=== PATIENT | male | born 1980 | race Caucasian/White ===

== ENCOUNTER 2021-04-23 17:12 | Outpatient (REF) | payer BC, SELFPAY ==
[2021-04-25 12:30] LABS: COVID-19 RT-PCR UVMMC Result Negative (Negative)
== END 2021-04-23 17:13 | disposition home or self-care (01) ==
LOC: LBN 17:12
PROVIDERS: Visit Provider Physician Assistant Medical
DX: Z20.822 Contact with and (suspected) exposure to COVID-19 (principal); J02.9 Acute pharyngitis, unspecified
CPT/HCPCS: U0003; 87070

== ENCOUNTER 2021-06-14 00:59 | Outpatient (CLI) | payer BC, SELFPAY ==
--- NOTE | 2021-06-14 08:00 | ETT_ITS ---
APPROVED REPORT Exam: Exercise Treadmill Patient Location: Out-Patient Room/Bed: Stress Nurse: Anne-Marie Ritter RN Ordering Provider:PAT LANE, Contact Number: [phone] BMI: 38.26 Baseline Rhythm: Sinus Rhythm Indications: Chest pain Medical History Medical History: Hyperlipidemia, prehypertension, obesity, [place], aortic valve regurgiation (per pt), a nxiety Cardiac Medications: None Allergies: Iodine, diphenhydramine, sertraline, azithromycin, sulfa, shellfish Cardiac Risk Factors: Hyperlipidemia, prehypertension, smoker (former), obesity, family hx Previous Cardiac Procedures: None Pretest Chest Pain Characteristics: None Exercise History: Sedentary Physical Disabilities: None Lung Sounds: Clear to auscultation Heart Sounds: Regular Stress Test Details Test: Exercise stress testing was performed using a Lefty protocol. Rest Stress HR Resting HR Supine: 82 bpm Max Heart Rate (APMHR): 181 bpm Resting HR Standin bpm Target HR (85% APMHR): 153 bpm Max HR Achieved: 156 bpm % of APMHR: 86 Recovery HR: 94 bpm HR response to stress: Normal HR response to stress BP Resting BP Supine: 140/100 mmHg Resting BP Standin/98 mmHg Max BP: 166/104 mmHg Recovery BP: 138/92 mmHg BP response to stress: Normal blood pressure response to stress. ECG Resting ECG: Sinus Rhythm Ectopy: None Stress ECG: Sinus Tachycardia ST Change: No significant ST segment changes noted Arrhythmia: Occasional PACs Recovery ECG: Sinus Rhythm Recovery ST Change: No significant ST segment changes noted Recovery Arrhythmia: None Clinical Reason for Termination: Fatigue Stress Symptoms: General Fatigue, Dyspnea Exercise duration: 7 min44 sec Highest Stage Reached: Stage 3: 3.4 mph at 14% grade. Exercise capacity: 9.75 METs Abrams Treadmill Score: 7.0 Rate Pressure Product: [id number] Stress ECG Conclusion 1. The resting electrocardiogram was within normal limits 2. Resting hypertension. Normal hemodynamic response to exercise. The patient achieved 86% of predi cted heart rate for age 3. Patient exercised on the Lefty protocol and completed a workload of 9.75 METS, stopping due to fat igue 4. The electrocardiographic portion of the test was negative for myocardial ischemia 5. There were no significant dysrhythmias Abrams Treadmill Score is 7.0 which is Low risk. Stress Test Summary STAGE Time (mins) Speed (mph) Grade (%) HR BP SYMPTOMS METS Supine 82 140/100 Standing 94 142/98 SpO2 97% 1 3 1.7 10 118 148/102 SpO2 94% 4.6 2 6 2.5 12 143 162/106 Mild SOB, SpO2 94% 7 3 9 3.4 14 156 Moderate SOB, SpO2 94% 10.2 1 min recovery 132 166/104 Mild SOB, SpO2 96% 3 min recovery 106 160/98 SOB resolved, SpO2 96% 6 min recovery 94 138/92 SpO2 96%
== END 2021-06-14 01:19 ==
LOC: DI 00:59
PROVIDERS: PCP Family Medicine; Visit Provider Family Medicine
DX: R07.89 Other chest pain (principal)
CPT/HCPCS: 93017

== ENCOUNTER 2022-09-28 16:46 | Outpatient (REF) | payer OTHER, SELFPAY ==
[2022-09-28 21:21] LABS: Abs Immature Grans 0.04 10^3/uL (0.0-0.06); Absolute Basophil Count 0.06 10^3/uL (0.0-0.2); Absolute Eosinophil Count 0.15 10^3/uL (0.0-0.7); Absolute Lymphocyte Count 1.91 10^3/uL (1.2-3.4); Absolute Monocyte Count 0.78 10^3/uL (0.1-0.8); Absolute Neutrophil Count 3.81 10^3/uL (1.2-6.7); Basophils % 0.9; Eosinophils % 2.2; HCT 54.7 % (40.0-50.0); HGB 18.9 g/dL (13.5-17.5); Immature Grans % 0.6; Lymphocytes % 28.3; MCH 30.5 pg (27.0-33.0); MCHC 34.6 % (32.0-36.0); MCV 88 fL (80-95); MPV 11.3 fL (8.0-11.0); Monocytes % 11.6; Neutrophils % 56.4; Platelet Count 197 10^3/uL (130-400); RDW 12.8 % (11.8-14.1); RDW-SD 41.1 fL; WBC 6.75 10^3/uL (4.4-10.8)
[2022-09-28 21:39] LABS: Anion Gap 6.5 mmol/L (3-11); BUN 17 mg/dL (7-18); CO2 29.5 mmol/L (21.0-32.0); CREATININE 1.3 mg/dL (0.70-1.30); Calcium 9.5 mg/dL (8.5-10.1); Chloride 103 mmol/L (98-107); Estimated GFR 71.22 (mL/min/1.73m2); Glucose 90 mg/dL (74-106); Potassium 4.4 mmol/L (3.5-5.1); Sodium 139 mmol/L (136-145); TSH (W/Ref FT4) 1.89 uIU/mL (0.36-3.74)
[2022-09-28 23:05] LABS: Diff Comment RBC Morph Reviewed
[2022-09-28 23:06] LABS: RBC Morphology Normal
== END 2022-09-28 16:47 | disposition home or self-care (01) ==
LOC: NCHCN 16:46
PROVIDERS: PCP Family Medicine; Visit Provider Family Medicine
DX: M79.18 Myalgia, other site (principal); R00.2 Palpitations; M72.2 Plantar fascial fibromatosis
CPT/HCPCS: 80048; 84443; 85025

== ENCOUNTER 2022-12-13 16:08 | Outpatient (REF) | payer OTHER, SELFPAY ==
[2022-12-13 15:51] LABS: Abs Immature Grans 0.05 10^3/uL (0.0-0.06); Absolute Basophil Count 0.04 10^3/uL (0.0-0.2); Absolute Lymphocyte Count 1.45 10^3/uL (1.2-3.4); Absolute Monocyte Count 0.65 10^3/uL (0.1-0.8); Absolute Neutrophil Count 3.57 10^3/uL (1.2-6.7); Basophils % 0.7; Eosinophils % 1.7; Immature Grans % 0.9; Lymphocytes % 24.7; MCH 30.3 pg (27.0-33.0); MCV 89 fL (80-95); MPV 10.8 fL (8.0-11.0); Monocytes % 11.1; Neutrophils % 60.9; Platelet Count 201 10^3/uL (130-400); RDW 12.6 % (11.8-14.1); RDW-SD 41.5 fL; WBC 5.86 10^3/uL (4.4-10.8)
[2022-12-13 16:07] LABS: ALT 33 U/L (16-63); AST 19 U/L (15-37); Albumin 4.1 g/dL (3.4-5.0); Alkaline Phosphatase 69 U/L (46-116); Anion Gap 6.5 mmol/L (3-11); BUN 16 mg/dL (7-18); Bilirubin, Total 0.6 mg/dL (0.2-1.0); CO2 28.5 mmol/L (21.0-32.0); Calcium 9.4 mg/dL (8.5-10.1); Calculated LDL 117 mg/dL (<100); Chloride 104 mmol/L (98-107); Cholesterol 183 mg/dL (<200); Estimated GFR 96.97 (mL/min/1.73m2); Glucose 101 mg/dL (74-106); HDL Cholesterol 39 mg/dL (40-60); Potassium 4.6 mmol/L (3.5-5.1); Sodium 139 mmol/L (136-145); TSH (W/Ref FT4) 1.81 uIU/mL (0.36-3.74); Total Protein 7.2 g/dL (6.4-8.2); Triglyceride 137 mg/dL (<150)
[2022-12-13 16:24] LABS: Vitamin D 25 Total 21.7 ng/mL (30-100)
[2022-12-13 17:39] LABS: Diff Comment Diff Reviewed; HGB 19.4 g/dL (13.5-17.5)
[2022-12-13 17:40] LABS: RBC Morphology Normal
== END 2022-12-13 16:09 | disposition home or self-care (01) ==
LOC: NCHCN 16:08
PROVIDERS: PCP Family Medicine; Visit Provider Family Medicine
DX: Z00.00 Encounter for general adult medical examination without abnormal findings (principal); E55.9 Vitamin D deficiency, unspecified; F41.1 Generalized anxiety disorder; E78.5 Hyperlipidemia, unspecified; D75.1 Secondary polycythemia; M72.2 Plantar fascial fibromatosis; G47.33 Obstructive sleep apnea (adult) (pediatric)
CPT/HCPCS: 80053; 80061; 82306; 84443; 85025

== ENCOUNTER 2022-12-14 16:18 | Outpatient (REF) | payer OTHER, SELFPAY ==
[2022-12-16 19:47] LABS: Erythropoietin 10.4 mIU/mL (2.6 - 18.5)
[2022-12-20 11:09] LABS: JAK2 Result see interpretation
== END 2022-12-14 16:19 | disposition home or self-care (01) ==
LOC: NCHCN 16:18
PROVIDERS: PCP Family Medicine; Visit Provider Family Medicine
DX: D75.1 Secondary polycythemia (principal)
CPT/HCPCS: 82668; 81270

== ENCOUNTER 2023-07-24 11:20 | Outpatient (REF) | payer OTHER, SELFPAY ==
[2023-07-24 15:05] LABS: Abs Immature Grans 0.03 10^3/uL (0.0-0.06); Absolute Basophil Count 0.05 10^3/uL (0.0-0.2); Absolute Eosinophil Count 0.09 10^3/uL (0.0-0.7); Absolute Lymphocyte Count 1.34 10^3/uL (1.2-3.4); Absolute Monocyte Count 0.58 10^3/uL (0.1-0.8); Absolute Neutrophil Count 2.67 10^3/uL (1.2-6.7); Basophils % 1.1 %; Eosinophils % 1.9 %; HCT 53.4 % (40.0-50.0); HGB 18.5 g/dL (13.5-17.5); Immature Grans % 0.6 %; Lymphocytes % 28.2 %; MCH 30.4 pg (27.0-33.0); MCHC 34.6 % (32.0-36.0); MCV 88 fL (80-95); MPV 11.1 fL (8.0-11.0); Monocytes % 12.2 %; Platelet Count 198 10^3/uL (130-400); RBC 6.09 10^6/uL (4.36-5.78); RDW 12.8 % (11.8-14.1); WBC 4.76 10^3/uL (4.4-10.8)
[2023-07-24 15:12] LABS: ESR 5 mm/hr (0-15)
[2023-07-24 15:51] LABS: ALT 41 U/L (16-63); AST 19 U/L (15-37); Albumin 4.4 g/dL (3.4-5.0); Alkaline Phosphatase 67 U/L (46-116); Anion Gap 10.9 mmol/L (3-11); BUN 22 mg/dL (7-18); Bilirubin, Total 0.7 mg/dL (0.2-1.0); CO2 26.1 mmol/L (21.0-32.0); CREATININE 1.2 mg/dL (0.70-1.30); Calcium 9.3 mg/dL (8.5-10.1); Chloride 105 mmol/L (98-107); Estimated GFR 77.92 (mL/min/1.73m2); Folate 15.9 ng/mL (8.6-20.0); Glucose 97 mg/dL (74-106); Potassium 4.3 mmol/L (3.5-5.1); Sodium 142 mmol/L (136-145); TSH (W/Ref FT4) 1.16 uIU/mL (0.36-3.74); Total Protein 7.1 g/dL (6.4-8.2); Vitamin B12 371 pg/mL (193-986)
[2023-07-25 09:44] LABS: Lyme Ab w Rflx to Lyme Confirm Negative (Negative)
[2023-07-27 08:46] LABS: Anaplasma phagocytophilum Negative (Negative); B. miyamotoi PCR Negative (Negative); Babesia divergens/MO-1 Negative (Negative); Babesia duncani Negative (Negative); Babesia microti Negative (Negative); Ehrlichia chaffeensis Negative (Negative); Ehrlichia ewingii/canis Negative (Negative); Ehrlichia muris eauclairensis Negative (Negative)
== END 2023-07-24 11:21 | disposition home or self-care (01) ==
LOC: NCHCN 11:20
PROVIDERS: PCP Family Medicine; Visit Provider Family Medicine
DX: M62.81 Muscle weakness (generalized) (principal); R41.89 Other symptoms and signs involving cognitive functions and awareness
CPT/HCPCS: 80053; 85652; 87798; 82607; 82746; 84443; 85025; 86618

== ENCOUNTER 2023-07-27 14:22 | Outpatient (REF) | payer OTHER, SELFPAY ==
[2023-07-27 15:06] LABS: Ferritin 134 ng/mL (26-388)
[2023-07-28 11:45] LABS: Syphilis Serology (RPR) Negative (Negative)
[2023-07-31 16:41] LABS: Erythropoietin 9.1 mIU/mL (2.6 - 18.5)
[2023-07-31 17:10] LABS: JAK2 Result see interpretation
== END 2023-07-27 14:23 | disposition home or self-care (01) ==
LOC: NCHCN 14:22
PROVIDERS: PCP Family Medicine; Visit Provider Family Medicine
DX: R41.89 Other symptoms and signs involving cognitive functions and awareness (principal); D45 Polycythemia vera
CPT/HCPCS: 82668; 81270; 82728; 86592

== ENCOUNTER 2023-08-17 03:50 | Outpatient (RCR) | payer OTHER, SELFPAY ==
[2023-08-03] MEDS: Normal Saline Flush 10 ML SYR IVP (08:05)
[2023-08-03 08:22] LABS: HCT 54.1 % (40.0-50.0); HGB 18.7 g/dL (13.5-17.5)
[2023-08-10 08:35] LABS: HCT 49.7 % (40.0-50.0); HGB 17.3 g/dL (13.5-17.5)
[2023-08-17 08:53] LABS: HCT 48.4 % (40.0-50.0)
== END 2023-08-18 23:59 | disposition home or self-care (01) ==
LOC: INF 03:50
PROVIDERS: PCP Family Medicine; Visit Provider Family Medicine
DX: D45 Polycythemia vera (principal)
CPT/HCPCS: 36415; 99195; 85014; 85018

== ENCOUNTER → 2023-08-25 01:44 | Outpatient (CLI) | payer OTHER, SELFPAY ==
--- NOTE | 2023-08-25 09:21 | DI.RAD_ITS ---
Exam(s) XR EYE FOREIGN BODY EXAM: XR EYE FOREIGN BODY INDICATION: SIGNS COGNITIVE FUNCTIONS AND AWARENESS R41.89 MRI CLEARANCE, HX METAL IN. COMPARISON: No exams were available for comparison TECHNIQUE: 2D digital imaging was performed. FINDINGS: No radiopaque foreign bodies are seen in the orbits. IMPRESSION: No radiopaque foreign body is are seen in the orbits. DATA REPOSITORY: RADIATION DOSE DELIVERED:
== END ==
PROVIDERS: PCP Family Medicine; Visit Provider Family Medicine
DX: R41.89 Other symptoms and signs involving cognitive functions and awareness (principal)
CPT/HCPCS: 70030

== ENCOUNTER 2023-09-14 01:11 | Outpatient (RCR) | payer OTHER, SELFPAY ==
[2023-09-04 07:57] LABS: HGB 16.6 g/dL (13.5-17.5)
[2023-09-14 08:52] LABS: HGB 15.5 g/dL (13.5-17.5)
== END 2023-09-17 23:59 | disposition home or self-care (01) ==
LOC: INF 01:11
PROVIDERS: PCP Family Medicine; Visit Provider Family Medicine
DX: D45 Polycythemia vera (principal)
CPT/HCPCS: 36415; 99195; 85014; 85018

== ENCOUNTER 2023-10-05 09:11 | Outpatient (CLI) | payer OTHER, SELFPAY ==
[2023-10-05 09:00] LABS: Abs Immature Grans 0.02 10^3/uL (0.0-0.06); Absolute Basophil Count 0.05 10^3/uL (0.0-0.2); Absolute Lymphocyte Count 1.36 10^3/uL (1.2-3.4); Absolute Monocyte Count 0.56 10^3/uL (0.1-0.8); Absolute Neutrophil Count 2.69 10^3/uL (1.2-6.7); Eosinophils % 2.1 %; HCT 47.2 % (40.0-50.0); HGB 15.8 g/dL (13.5-17.5); Immature Grans % 0.4 %; Lymphocytes % 28.5 %; MCH 28.7 pg (27.0-33.0); MCHC 33.5 % (32.0-36.0); MCV 86 fL (80-95); Monocytes % 11.7 %; Neutrophils % 56.3 %; Platelet Count 213 10^3/uL (130-400); RDW 12.5 % (11.8-14.1); WBC 4.78 10^3/uL (4.4-10.8)
[2023-10-05 09:28] LABS: Ferritin 16 ng/mL (26-388)
== END 2023-10-05 09:12 | disposition home or self-care (01) ==
LOC: LBO 09:11
PROVIDERS: PCP Family Medicine; Visit Provider Internal Medicine
DX: D75.1 Secondary polycythemia (principal)
CPT/HCPCS: 36415; 82728; 85025

== ENCOUNTER 2023-10-05 14:00 | Outpatient (RCR) | payer OTHER, SELFPAY ==
[2023-09-20 08:05] LABS: HCT 49.2 % (40.0-50.0); HGB 16.4 g/dL (13.5-17.5)
== END 2023-10-18 23:59 | disposition home or self-care (01) ==
LOC: INF 14:00
PROVIDERS: PCP Family Medicine; Visit Provider Family Medicine
DX: D45 Polycythemia vera (principal)
CPT/HCPCS: 36415; 99195; 85014; 85018

== ENCOUNTER → 2023-10-18 00:37 | Outpatient (CLI) | payer OTHER, SELFPAY ==
--- OUTSIDE RECORDS SUMMARY | 2023-09-15 00:21 | XMS_ITS | Continuity of Care Document ---
Author Name Unknown Organization [facility] Address [address] [place] [address] Care Team Providers Care Jacquard Loom Card Changer Name Role Phone Juliano Persaud Primary Care Physician Encounter [facility] [id number] Date(s): 12/09/22 - 12/09/22 [facility] [address] [place] [address] Discharge Disposition: Home Allergies, Adverse Reactions, Alerts Substance Reaction Severity Status azithromycin Severe Active sertraline Severe Active shellfish Moderate Active sulfa drugs Moderate Active diphenhydrAMINE Severe Active iodine Severe Active Problem List Condition Confirmation Course Effective Dates Status Health St atus Informant Cognitive changes Confirmed Active Obstructive sleep apnea, adult Confirmed Active Periodic limb movements of sleep Confirmed Active Word finding difficulty Confirmed Active Social History Social History Type Response Tobacco Never tobacco user T obacco Use:. 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
--- OUTSIDE RECORDS SUMMARY | 2023-09-15 00:21 | XMS_ITS | Continuity of Care Document ---
Author Name Unknown Organization [facility] Address [address] [place] [address] Care Team Providers Care Mill Tender Second Operator Name Role Phone Juliano Persaud Primary Care Physician Encounter [facility] [id number] Date(s): 04/05/23 - 04/05/23 [facility] [address] [place] [address] Discharge Disposition: Home Allergies, Adverse Reactions, Alerts Substance Reaction Severity Status azithromycin Severe Active sertraline Severe Active shellfish Moderate Active sulfa drugs Moderate Active diphenhydrAMINE Severe Active iodine Severe Active Medications aspirin 81 mg oral capsule 81 mg = 1 cap, Oral, every 24 hr, 0 Refill(s) Start Date: 01/18/23 Status: Ordered Problem List Condition Confirmation Course Effective Dates [...] Member Role: Primary Care Physician Address: Address: [address] [address] Name: Rebekah Guan 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
--- NOTE | 2023-10-18 | DI.MRI_ITS ---
Exam(s) MR BRAIN WO EXAM: MR BRAIN WO CLINICAL HISTORY: IMPAIRED COGNITION R41.89 TECHNIQUE: Multiplanar multisequence MRI of the brain was performed. COMPARISON: No exams were available for comparison FINDINGS: VENTRICLES AND EXTRA AXIAL SPACES: Normal in size and morphology for the patient's age. MIDLINE SHIFT: None. CEREBRAL PARENCHYMA: No focus of restricted diffusion to suggest acute infarct. No space-occupying le wilfrid identified. Mild atrophy consistent with the patient's age. Mild scattered foci of high signal in the white matter consistent with sequela of chronic microvascular disease. HEMORRHAGE: None. BRAINSTEM/CEREBELLUM: Normal. VISUALIZED PARANASAL SINUSES/MASTOIDS:Mild mucosal thickening noted at the floor of the right maxilla ry sinus and ethmoid sinuses. Vasculature: Normal flow void. PITUITARY GLAND: Unremarkable. ORBITS: Unremarkable. IMPRESSION: Unremarkable MRI of the brain. DATA REPOSITORY:
== END ==
PROVIDERS: PCP Family Medicine; Visit Provider Family Medicine
DX: R41.89 Other symptoms and signs involving cognitive functions and awareness (principal); R16.1 Splenomegaly, not elsewhere classified
CPT/HCPCS: 70551

== ENCOUNTER 2023-11-06 03:11 | Outpatient (RCR) | payer OTHER, SELFPAY ==
[2023-11-06 09:17] LABS: Abs Immature Grans 0.03 10^3/uL (0.0-0.06); Absolute Basophil Count 0.05 10^3/uL (0.0-0.2); Absolute Eosinophil Count 0.17 10^3/uL (0.0-0.7); Absolute Lymphocyte Count 1.93 10^3/uL (1.2-3.4); Absolute Monocyte Count 0.87 10^3/uL (0.1-0.8); Absolute Neutrophil Count 3.12 10^3/uL (1.2-6.7); Basophils % 0.8 %; Eosinophils % 2.8 %; HCT 45.9 % (40.0-50.0); HGB 14.7 g/dL (13.5-17.5); Immature Grans % 0.5 %; Lymphocytes % 31.3 %; MCH 26.4 pg (27.0-33.0); MCV 82 fL (80-95); MPV 10.3 fL (8.0-11.0); Monocytes % 14.1 %; Neutrophils % 50.5 %; Platelet Count 230 10^3/uL (130-400); RBC 5.57 10^6/uL (4.36-5.78); RDW 13.2 % (11.8-14.1); RDW-SD 39.7 fL; WBC 6.17 10^3/uL (4.4-10.8)
[2023-11-06 09:43] LABS: Ferritin 11 ng/mL (26-388)
== END 2023-11-18 23:59 | disposition home or self-care (01) ==
LOC: INF 03:11
PROVIDERS: PCP Family Medicine; Visit Provider Family Medicine
DX: D45 Polycythemia vera (principal)
CPT/HCPCS: 36415; 99195; 82728; 85025

== ENCOUNTER 2023-11-06 08:00 | Outpatient (RCR) | payer OTHER, SELFPAY ==
[2023-10-20 08:45] LABS: Abs Immature Grans 0.04 10^3/uL (0.0-0.06); Absolute Basophil Count 0.05 10^3/uL (0.0-0.2); Absolute Eosinophil Count 0.18 10^3/uL (0.0-0.7); Absolute Lymphocyte Count 1.43 10^3/uL (1.2-3.4); Absolute Monocyte Count 0.59 10^3/uL (0.1-0.8); Absolute Neutrophil Count 2.49 10^3/uL (1.2-6.7); Eosinophils % 3.8 %; Immature Grans % 0.8 %; Lymphocytes % 29.9 %; MCH 27.5 pg (27.0-33.0); MCHC 32.6 % (32.0-36.0); MCV 84 fL (80-95); MPV 10.5 fL (8.0-11.0); Monocytes % 12.3 %; Neutrophils % 52.2 %; Platelet Count 237 10^3/uL (130-400); RBC 5.45 10^6/uL (4.36-5.78); RDW 12.6 % (11.8-14.1); RDW-SD 38.4 fL; WBC 4.78 10^3/uL (4.4-10.8)
[2023-10-20 09:13] LABS: Ferritin 25 ng/mL (26-388)
== END 2023-11-18 23:59 | disposition home or self-care (01) ==
LOC: INF 08:00
PROVIDERS: PCP Family Medicine; Visit Provider Internal Medicine
DX: D45 Polycythemia vera (principal)
CPT/HCPCS: 36415; 99195; 82728; 85025

== ENCOUNTER 2023-11-28 02:33 | Outpatient (CLI) | payer OTHER, SELFPAY ==
[2023-11-28 14:40] LABS: Abs Immature Grans 0.03 10^3/uL (0.0-0.06); Absolute Basophil Count 0.04 10^3/uL (0.0-0.2); Absolute Eosinophil Count 0.07 10^3/uL (0.0-0.7); Absolute Lymphocyte Count 1.51 10^3/uL (1.2-3.4); Absolute Monocyte Count 0.67 10^3/uL (0.1-0.8); Basophils % 0.5 %; Eosinophils % 0.9 %; HCT 42.8 % (40.0-50.0); HGB 13.3 g/dL (13.5-17.5); Immature Grans % 0.4 %; Lymphocytes % 18.8 %; MCH 24.3 pg (27.0-33.0); MCHC 31.1 % (32.0-36.0); MCV 78 fL (80-95); MPV 9.8 fL (8.0-11.0); Monocytes % 8.4 %; Platelet Count 244 10^3/uL (130-400); RBC 5.48 10^6/uL (4.36-5.78); WBC 8.02 10^3/uL (4.4-10.8)
[2023-11-28 15:51] LABS: Ferritin 10 ng/mL (26-388)
== END 2023-11-28 02:34 | disposition home or self-care (01) ==
LOC: LBO 02:34
PROVIDERS: PCP Family Medicine; Visit Provider Internal Medicine
DX: D75.1 Secondary polycythemia (principal)
CPT/HCPCS: 36415; 82728; 85025

== ENCOUNTER 2023-12-04 04:47 | Outpatient (CLI) | payer OTHER, SELFPAY ==
[2023-12-04 08:51] LABS: Abs Immature Grans 0.01 10^3/uL (0.0-0.06); Absolute Basophil Count 0.03 10^3/uL (0.0-0.2); Absolute Eosinophil Count 0.08 10^3/uL (0.0-0.7); Absolute Monocyte Count 0.55 10^3/uL (0.1-0.8); Absolute Neutrophil Count 2.87 10^3/uL (1.2-6.7); Basophils % 0.6 %; Eosinophils % 1.7 %; HCT 44.3 % (40.0-50.0); HGB 13.8 g/dL (13.5-17.5); Immature Grans % 0.2 %; Lymphocytes % 26.9 %; MCH 24.2 pg (27.0-33.0); MCHC 31.2 % (32.0-36.0); MCV 78 fL (80-95); MPV 9.8 fL (8.0-11.0); Monocytes % 11.4 %; Neutrophils % 59.2 %; Platelet Count 216 10^3/uL (130-400); RDW 14.4 % (11.8-14.1); RDW-SD 40.1 fL; WBC 4.84 10^3/uL (4.4-10.8)
[2023-12-04 09:28] LABS: Ferritin 8 ng/mL (26-388)
[2023-12-04 09:53] LABS: Iron 24 ug/dL (65-175); Total Iron Binding Capacity 423 ug/dL (250-450); Transferrin Sat 6 % (20-55)
[2023-12-10 09:17] LABS: Testosterone, Free 11.6 ng/dL (4.46-17.1); Testosterone, Total 289 ng/dL (240-950)
== END 2023-12-04 04:48 | disposition home or self-care (01) ==
PROVIDERS: PCP Family Medicine; Visit Provider Nurse Practitioner Adult Health
DX: R53.83 Other fatigue (principal); E61.1 Iron deficiency
CPT/HCPCS: 36415; 84402; 84403; 82728; 83540; 83550; 85025

== ENCOUNTER 2024-03-25 13:54 | Outpatient (REF) | payer OTHER, SELFPAY ==
[2024-03-25 21:09] LABS: Abs Immature Grans 0.04 10^3/uL (0.0-0.06); Absolute Basophil Count 0.05 10^3/uL (0.0-0.2); Absolute Eosinophil Count 0.06 10^3/uL (0.0-0.7); Absolute Monocyte Count 0.67 10^3/uL (0.1-0.8); Absolute Neutrophil Count 6.01 10^3/uL (1.2-6.7); Basophils % 0.6 %; Eosinophils % 0.7 %; HGB 15.7 g/dL (13.5-17.5); Immature Grans % 0.5 %; MCH 24.4 pg (27.0-33.0); MCHC 31.4 % (32.0-36.0); MCV 78 fL (80-95); Monocytes % 8.2 %; Platelet Count 210 10^3/uL (130-400); RBC 6.43 10^6/uL (4.36-5.78); RDW 20.7 % (11.8-14.1); RDW-SD 55.5 fL; WBC 8.13 10^3/uL (4.4-10.8)
[2024-03-25 21:30] LABS: Ferritin 21 ng/mL (26-388)
[2024-03-25 21:32] LABS: Anisocytosis 1+; Diff Comment RBC Morph Reviewed
[2024-03-25 21:33] LABS: Polychromasia Present
== END 2024-03-25 13:55 | disposition home or self-care (01) ==
LOC: NCHCN 13:54
PROVIDERS: PCP Family Medicine; Visit Provider Family Medicine
DX: D45 Polycythemia vera (principal); E61.1 Iron deficiency
CPT/HCPCS: 82728; 85025

== ENCOUNTER 2024-05-15 02:55 | Outpatient (RCR) | payer OTHER, SELFPAY ==
[2024-04-24] MEDS: Normal Saline 1,000 ML 999 ML IV (08:12)
[2024-04-24] MEDS: Normal Saline Flush 10 ML SYR IVP (08:15)
[2024-05-01] MEDS: Normal Saline 1,000 ML 999 ML IV (10:16)
[2024-05-01] MEDS: Normal Saline Flush 10 ML SYR IVP (10:17)
[2024-05-07] MEDS: Normal Saline 1,000 ML 999 ML IV (08:28)
[2024-05-07] MEDS: Normal Saline Flush 10 ML SYR IVP (08:32)
[2024-05-15] MEDS: Normal Saline 1,000 ML 999 ML IV (08:29)
[2024-05-15] MEDS: Normal Saline Flush 10 ML SYR IVP (08:30)
== END 2024-05-17 23:59 | disposition home or self-care (01) ==
LOC: INF 02:55
PROVIDERS: PCP Family Medicine; Visit Provider Family Medicine
DX: D45 Polycythemia vera
CPT/HCPCS: 96360; 96365

== ENCOUNTER 2024-06-11 16:23 | Outpatient (CLI) | payer OTHER, SELFPAY ==
[2024-06-11 16:58] LABS: Abs Immature Grans 0.03 10^3/uL (0.0-0.06); Absolute Basophil Count 0.06 10^3/uL (0.0-0.2); Absolute Eosinophil Count 0.09 10^3/uL (0.0-0.7); Absolute Lymphocyte Count 1.73 10^3/uL (1.2-3.4); Absolute Monocyte Count 0.76 10^3/uL (0.1-0.8); Basophils % 0.8 %; Eosinophils % 1.2 %; HCT 47.5 % (40.0-50.0); HGB 15.4 g/dL (13.5-17.5); Immature Grans % 0.4 %; Lymphocytes % 23.8 %; MCH 26.5 pg (27.0-33.0); MCHC 32.4 % (32.0-36.0); MCV 82 fL (80-95); Monocytes % 10.5 %; Neutrophils % 63.3 %; RBC 5.81 10^6/uL (4.36-5.78); RDW 15.7 % (11.8-14.1); RDW-SD 46.3 fL; WBC 7.27 10^3/uL (4.4-10.8)
[2024-06-11 18:27] LABS: Ferritin 24 ng/mL (26-388)
== END 2024-06-11 16:24 | disposition home or self-care (01) ==
LOC: LBO 16:23
PROVIDERS: PCP Family Medicine; Visit Provider Nurse Practitioner Adult Health
DX: D45 Polycythemia vera (principal)
CPT/HCPCS: 36415; 82728; 85025

== ENCOUNTER 2024-06-12 02:10 | Outpatient (RCR) | payer OTHER, SELFPAY ==
[2024-06-12] MEDS: Normal Saline 1,000 ML 1000 ML IV (08:32)
[2024-06-12] MEDS: Normal Saline Flush 5 ML SYR IVP (08:32)
== END 2024-06-17 23:59 | disposition home or self-care (01) ==
LOC: INF 02:10
PROVIDERS: PCP Family Medicine; Visit Provider Internal Medicine
DX: D45 Polycythemia vera (principal)
CPT/HCPCS: 96360; 96365; 99195

== ENCOUNTER 2024-07-22 13:08 | Outpatient (REF) | payer OTHER, SELFPAY ==
[2024-07-22 21:24] LABS: Abs Immature Grans 0.01 10^3/uL (0.0-0.06); Absolute Basophil Count 0.06 10^3/uL (0.0-0.2); Absolute Eosinophil Count 0.09 10^3/uL (0.0-0.7); Absolute Lymphocyte Count 1.29 10^3/uL (1.2-3.4); Absolute Monocyte Count 0.67 10^3/uL (0.1-0.8); Absolute Neutrophil Count 3.26 10^3/uL (1.2-6.7); Basophils % 1.1 %; Eosinophils % 1.7 %; HCT 48.1 % (40.0-50.0); HGB 15.5 g/dL (13.5-17.5); Immature Grans % 0.2 %; MCH 26.3 pg (27.0-33.0); MCHC 32.2 % (32.0-36.0); MCV 82 fL (80-95); MPV 10.6 fL (8.0-11.0); Monocytes % 12.5 %; Neutrophils % 60.5 %; Platelet Count 230 10^3/uL (130-400); RBC 5.89 10^6/uL (4.36-5.78); RDW 14.3 % (11.8-14.1); RDW-SD 41.3 fL; WBC 5.38 10^3/uL (4.4-10.8)
[2024-07-22 22:33] LABS: Ferritin 14 ng/mL (26-388)
== END 2024-07-22 13:09 | disposition home or self-care (01) ==
LOC: NCHCN 13:08
PROVIDERS: PCP Family Medicine; Visit Provider Family Medicine
DX: D75.1 Secondary polycythemia (principal); E61.1 Iron deficiency
CPT/HCPCS: 82728; 85025

== ENCOUNTER 2024-10-03 08:51 | Outpatient (CLI) | payer OTHER, SELFPAY ==
[2024-10-03 08:45] LABS: HCT 54.5 % (40.0-50.0); HGB 17.8 g/dL (13.5-17.5); MCH 26.4 pg (27.0-33.0); MCHC 32.7 % (32.0-36.0); MCV 81 fL (80-95); MPV 10.0 fL (8.0-11.0); Platelet Count 208 10^3/uL (130-400); RDW 17.5 % (11.8-14.1); RDW-SD 47.0 fL; WBC 6.15 10^3/uL (4.4-10.8)
[2024-10-03 08:50] LABS: RBC 6.73 10^6/uL (4.36-5.78)
[2024-10-03 09:17] LABS: Ferritin 23 ng/mL (26-388)
== END 2024-10-03 08:52 | disposition home or self-care (01) ==
LOC: LBO 08:51
PROVIDERS: PCP Family Medicine; Visit Provider Family Medicine
DX: E61.1 Iron deficiency (principal)
CPT/HCPCS: 36415; 85027; 82728

== ENCOUNTER 2024-10-15 04:33 | Outpatient (RCR) | payer OTHER, SELFPAY ==
[2024-10-15] MEDS: Normal Saline 1,000 ML 999 ML IV (13:10)
[2024-10-15] MEDS: Normal Saline Flush 10 ML SYR IVP (13:28)
== END 2024-10-17 23:59 | disposition home or self-care (01) ==
LOC: INF 04:33
PROVIDERS: PCP Family Medicine; Visit Provider Family Medicine
DX: D45 Polycythemia vera (principal)

== ENCOUNTER 2024-11-21 15:19 | Outpatient (CLI) | payer OTHER, SELFPAY ==
[2024-11-21 14:13] LABS: HCT 51.9 % (40.0-50.0); HGB 17.3 g/dL (13.5-17.5); MCH 27.5 pg (27.0-33.0); MCHC 33.3 % (32.0-36.0); MCV 83 fL (80-95); MPV 10.2 fL (8.0-11.0); Platelet Count 229 10^3/uL (130-400); RBC 6.28 10^6/uL (4.36-5.78); RDW 15.7 % (11.8-14.1); RDW-SD 46.9 fL; WBC 5.84 10^3/uL (4.4-10.8)
[2024-11-21 15:47] LABS: Ferritin 33 ng/mL (26-388)
== END 2024-11-21 15:20 | disposition home or self-care (01) ==
LOC: LBO 15:20
PROVIDERS: PCP Family Medicine; Visit Provider Family Medicine
DX: D75.1 Secondary polycythemia (principal)
CPT/HCPCS: 36415; 85027; 82728

== ENCOUNTER 2024-12-12 17:45 | Outpatient (REF) | payer OTHER, SELFPAY ==
[2024-12-12 21:36] LABS: ALT 42 U/L (16-63); AST 25 U/L (15-37); Albumin 3.9 g/dL (3.4-5.0); Alkaline Phosphatase 80 U/L (46-116); Anion Gap 8.4 mmol/L (3-11); BUN 16 mg/dL (7-18); Bilirubin, Total 0.4 mg/dL (0.2-1.0); CO2 29.6 mmol/L (21.0-32.0); Calcium 8.9 mg/dL (8.5-10.1); Chloride 104 mmol/L (98-107); Estimated GFR 76.95 (mL/min/1.73m2); Glucose 83 mg/dL (74-106); Potassium 4.2 mmol/L (3.5-5.1); Sodium 142 mmol/L (136-145); Total Protein 6.8 g/dL (6.4-8.2)
== END 2024-12-12 17:46 | disposition home or self-care (01) ==
LOC: NCHCN 17:45
PROVIDERS: PCP Family Medicine; Visit Provider Family Medicine
DX: Z00.00 Encounter for general adult medical examination without abnormal findings (principal)
CPT/HCPCS: 80053

== ENCOUNTER 2024-12-16 03:52 | Outpatient (RCR) | payer OTHER, SELFPAY ==
[2024-12-16] MEDS: Normal Saline 1,000 ML 1000 ML IV (13:25)
[2024-12-16] MEDS: Normal Saline Flush 10 ML SYR IVP (13:37)
== END 2024-12-17 23:59 | disposition home or self-care (01) ==
LOC: INF 03:52
PROVIDERS: PCP Family Medicine; Visit Provider Hospitalist
DX: D75.1 Secondary polycythemia (principal)
CPT/HCPCS: 96365; 99195